=== PATIENT | female | born 1950 | race Caucasian/White ===

== ENCOUNTER 2016-12-10 16:48 | Emergency (ER) | payer OTHER ==
[~2016-12-10] VITALS: Ht 162.6 cm; Wt 72.6 kg
[~2016-12-10 16:48] MED LIST: ALT2.5 PO; ATOR10TA PO; LEVO0.083 PO; METF500T PO
[2016-12-10 17:23] VITALS: BP 129/80
[2016-12-10] MEDS ORDERED: GLIP10TA3 PO (17:34)
[2016-12-10] MEDS ORDERED: ERGO400T2 PO (17:34)
[2016-12-10] MEDS ORDERED: EMPA25TA PO (17:34)
[2016-12-10] MEDS ORDERED: GABA100C PO (17:34)
--- NOTE | 2016-12-10 18:41 | NUR ---
PATIENT PRESENTS TO ED WITH 65/F BIB FAMILY C/O COUGH & BODYACHE X 2 MONTHS. DENIES N/V/D; SKIN IS PINK/WARM/DRY; AAOX4 WITH EVEN AND STEADY GAIT; LUNGS CLEAR BL; HR EVEN AND REGULAR; PT DENIES ANY FEVER, CP, SOB AT THIS TIME; PATIENT STATES PAIN OF 8/10 AT THIS TIME; VSS; PATIENT POSITIONED FOR COMFORT; HOB ELEVATED; BEDRAILS UP X2; BED DOWN. ER MD MADE AWARE OF PT STATUS.
[2016-12-10 19:22] VITALS: BP 128/79
--- NOTE | 2016-12-10 19:22 | NUR ---
Patient discharged with v/s stable. Written and verbal after care instructions given and explained. Patient alert, oriented and verbalized understanding of instructions. Ambulatory with steady gait. All questions addressed prior to discharge. ID band removed. Patient advised to follow up with PMD. Rx of prednison given. Patient educated on indication of medication including possible reaction and side effects. Opportunity to ask questions provided and answered.
== END 2016-12-10 19:22 | disposition home or self-care (01) ==
LOC: MED 16:48
DX: R05 Cough (principal); R07.89 Other chest pain; M54.9 Dorsalgia, unspecified
CPT/HCPCS: 71020; 93005; 99284

== ENCOUNTER 2016-12-31 06:40 | Emergency (ER) | payer OTHER ==
[~2016-12-31] VITALS: Ht 162.6 cm; Wt 70.3 kg
[~2016-12-31 06:40] MED LIST changes: -ALT2.5 PO; +EMPA25TA PO; +ERGO400T2 PO; +GABA100C PO; +GLIP10TA3 PO
[2016-12-31 06:45] VITALS: BP 125/62
--- NOTE | 2016-12-31 06:57 | NUR ---
PT TAKEN TO BED 5
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
--- NOTE | 2016-12-31 07:38 | NUR ---
Dr. Duran evaluating patient at bedside.
[2016-12-31] MEDS ORDERED: ACETAMINOPHEN EXTRA STRENGTH 500 MG TAB PO ONE (07:45)
--- NOTE | 2016-12-31 08:00 | NUR ---
X-Ray at bedside.
--- NOTE | 2016-12-31 08:10 | NUR ---
Pt provided with meal tray. Tolerating well.
--- NOTE | 2016-12-31 08:33 | NUR ---
Patient appears to be resting comfortably in bed. Vital Signs within normal limits. Respirations even and unlabored.
[2016-12-31 09:34] VITALS: BP 136/71
--- NOTE | 2016-12-31 09:34 | NUR ---
Patient discharged with v/s stable. Written and verbal after care instructions given and explained. Patient alert, oriented and verbalized understanding of instructions. Ambulatory with steady gait. All questions addressed prior to discharge. ID band removed. Patient advised to follow up with PMD. Rx of EXTRA STRENGTH TYLENOL given. Patient educated on indication of medication including possible reaction and side effects. Opportunity to ask questions provided and answered.
[2016-12-31] MEDS ORDERED: BACITRACIN OINT 500 UNITS/GM PKT TP ONE (09:43)
== END 2016-12-31 09:34 | disposition home or self-care (01) ==
LOC: MED 06:40
DX: S80.211A Abrasion, right knee, initial encounter (principal); S60.511A Abrasion of right hand, initial encounter; R03.0 Elevated blood-pressure reading, without diagnosis of hypertension; E11.9 Type 2 diabetes mellitus without complications; Y04.8XXA Assault by other bodily force, initial encounter; Y93.89 Activity, other specified; Y92.89 Other specified places as the place of occurrence of the external cause; Y99.8 Other external cause status
CPT/HCPCS: 73130; 73562; 90471; 90715; 99284; Q0092

== ENCOUNTER 2017-06-30 09:23 | Outpatient (CLI) | payer OTHER | END 2017-06-30 20:56 | disposition home or self-care (01) | LOC: MUS 09:23 | PROVIDERS: ATTEND Obstetrics & Gynecology | DX: N95.0 Postmenopausal bleeding (principal); Z90.710 Acquired absence of both cervix and uterus | CPT/HCPCS: 76856 ==

== ENCOUNTER 2018-07-07 13:42 | Outpatient (CLI) | payer OTHER ==
[~2018-07-07 13:42] MED LIST changes: -ATOR10TA PO; -GABA100C PO; -GLIP10TA3 PO
== END 2018-07-07 20:13 | disposition home or self-care (01) ==
LOC: MCA 13:42
DX: E04.1 Nontoxic single thyroid nodule (principal); I70.0 Atherosclerosis of aorta; M47.892 Other spondylosis, cervical region; M47.894 Other spondylosis, thoracic region; J41.0 Simple chronic bronchitis; J67.9 Hypersensitivity pneumonitis due to unspecified organic dust; E11.9 Type 2 diabetes mellitus without complications; E78.00 Pure hypercholesterolemia, unspecified
CPT/HCPCS: 70490; 71250

== ENCOUNTER 2018-09-21 12:01 | Outpatient (CLI) | payer OTHER ==
[2018-09-21 12:28] LABS: BASOPHILS % (AUTO) 0.2 % (0.0-2.0); EOSINOPHILS # (AUTO) 0.8 K/uL (0-0.4); EOSINOPHILS % (AUTO) 14.2 % (0.0-4.0); HEMATOCRIT 43.2 % (36-48); HEMOGLOBIN 14.2 g/dL (12.0-16.0); LYMPHOCYTES # (AUTO) 1.4 K/uL (2.5-16.5); LYMPHOCYTES % (AUTO) 23.6 % (20.5-51.1); MEAN CORPUSCULAR HEMOGLOBIN 30 pg (27-31); MEAN CORPUSCULAR HGB CONC 33 g/dL (33-37); MEAN CORPUSCULAR VOLUME 89.8 fL (80-94); MONOCYTES # (AUTO) 0.4 K/uL (0.8-1.0); MONOCYTES % (AUTO) 7.2 % (1.7-9.3); NEUTROPHILS # (AUTO) 3.2 K/uL (1.8-7.7); NEUTROPHILS % (AUTO) 54.8 % (42.2-75.2); PLATELET COUNT (AUTO) 209 K/uL (140-450); RED CELL DISTRIBUTION WIDTH 13.8 % (11.6-13.7); WHITE BLOOD COUNT (AUTO) 5.9 K/uL (4.8-10.8)
[2018-09-21 12:58] LABS: ALBUMIN 4.1 g/dL (3.4-5.0); ANION GAP 11.7 (8-16); CARBON DIOXIDE 29.2 mmol/L (21-32); CHOL/HDL RATIO 2.5 (1-4.5); CREATININE 0.7 mg/dL (0.6-1.3); POTASSIUM 3.9 mmol/L (3.5-5.1); THYROID STIMULATING HORMONE 4.05 uIU/mL (0.34-3.74); TOTAL BILIRUBIN 0.6 mg/dL (0.0-1.0)
== END 2018-09-21 19:39 | disposition home or self-care (01) ==
LOC: MLB 12:01
PROVIDERS: ATTEND Internal Medicine Geriatric Medicine
DX: E78.5 Hyperlipidemia, unspecified (principal); E11.9 Type 2 diabetes mellitus without complications; E03.9 Hypothyroidism, unspecified; E55.9 Vitamin D deficiency, unspecified
CPT/HCPCS: 36415; 80053; 82306; 83036; 84443; 85025

== ENCOUNTER 2018-10-03 12:26 | Outpatient (CLI) | payer OTHER | END 2018-10-03 17:56 | disposition home or self-care (01) | LOC: MLB 12:26 | PROVIDERS: ATTEND Internal Medicine | DX: R05 Cough (principal); E03.9 Hypothyroidism, unspecified; E11.9 Type 2 diabetes mellitus without complications | CPT/HCPCS: 87070; 87205 ==

== ENCOUNTER 2018-12-21 09:24 | Outpatient (CLI) | payer OTHER | END 2018-12-21 20:00 | disposition home or self-care (01) | LOC: MUS 09:24 | PROVIDERS: ATTEND Internal Medicine Geriatric Medicine | DX: E04.2 Nontoxic multinodular goiter (principal) | CPT/HCPCS: 76536; Q0092 ==

== ENCOUNTER 2024-05-14 14:10 | Emergency (ER) | payer OTHER, MEDICAID ==
[~2024-05-14] VITALS: Ht 162.6 cm; Wt 72.6 kg
[~2024-05-14 14:10] MED LIST changes: +METF-346 PO; -METF500T PO
[2024-05-14 14:15] VITALS: BP 141/55; PULSE 74; RESP 18; TEMP 98.6; O2SAT 98
--- NOTE | 2024-05-14 14:20 | NUR ---
PT AMB TO BED 8
--- NOTE | 2024-05-14 14:43 | NUR ---
Patient being evaluated by physician at bedside.
--- NOTE | 2024-05-14 14:51 | NUR ---
Patient ambulated to restroom with steady gait.
--- NOTE | 2024-05-14 15:10 | NUR ---
73 y/o female bib self with c/o edema to bilateral lower extremities. Patient is noted with +2 pitting edema to lower extremities. Patient has positive bilateral pedal pulses. Patient is ambulatory. Denies any SOB or fevers. Patient reports recent UTI infection. Patient has no redness or heat to legs. Medical History: DM, Thyroid NKDA
[2024-05-14 15:22] LABS: APPEARANCE,URINE CLEAR (CLEAR); BILIRUBIN,URINE NEGATIVE (NEGATIVE); BLOOD, URINE NEGATIVE (NEGATIVE); COLOR,URINE YELLOW (YELLOW); LEUKOCYTE ESTERASE ,URINE NEGATIVE (NEGATIVE); NITRITE, URINE NEGATIVE (NEGATIVE); PROTEIN,URINE NEGATIVE (NEGATIVE); UGLUCOSE 3+ (NEGATIVE); UROBILINOGEN,URINE 0.2 EU/dL (0.2 - 1)
[2024-05-14 15:25] LABS: BASOPHILS % (AUTO) 0.4 % (0.0-2.0); EOSINOPHILS # (AUTO) 2.3 K/uL (0-0.4); EOSINOPHILS % (AUTO) 32.4 % (0.0-4.0); HEMATOCRIT 39.4 % (36-48); LYMPHOCYTES # (AUTO) 1.9 K/uL (2.5-16.5); LYMPHOCYTES % (AUTO) 26.7 % (20.5-51.1); MEAN CORPUSCULAR HEMOGLOBIN 30 pg (27-31); MEAN CORPUSCULAR HGB CONC 33 g/dL (33-37); MEAN CORPUSCULAR VOLUME 91.6 fL (80-94); MONOCYTES # (AUTO) 0.5 K/uL (0.8-1.0); MONOCYTES % (AUTO) 6.6 % (1.7-9.3); NEUTROPHILS # (AUTO) 2.4 K/uL (1.8-7.7); NEUTROPHILS % (AUTO) 33.9 % (42.2-75.2); PLATELET COUNT (AUTO) 180 K/uL (140-450); RED CELL DISTRIBUTION WIDTH 14.9 % (11.6-13.7)
--- NOTE | 2024-05-14 15:25 | NUR ---
X-Ray at bedside.
[2024-05-14 15:38] LABS: ANION GAP 12.9 (8-16); CARBON DIOXIDE 29.6 mmol/L (21-32); CHLORIDE 103 mmol/L (98-107); CREATININE 0.8 mg/dL (0.6-1.3); GLUCOSE 212 mg/dL (74-106); POTASSIUM 3.5 mmol/L (3.5-5.1); SODIUM SERUM 142 mmol/L (136-145); UREA NITROGEN, BLOOD 16 mg/dL (7-18)
--- NOTE | 2024-05-14 15:51 | NUR ---
Per basilia Sullivan to give milk and crackers. Patient was given milk and crackers.
[2024-05-14 16:55] VITALS: BP 137/60; PULSE 71; RESP 18; TEMP 97.4; O2SAT 97
--- NOTE | 2024-05-14 16:55 | NUR ---
Patient discharged with v/s stable. Written and verbal after care instructions given. Patient verbalized understanding. Ambulatory with steady gait. All questions addressed prior to discharge. Advised to follow up with PMD.
--- NOTE | 2024-05-14 17:15 | NUR ---
Chart checked and completed. The patient's care was reviewed and supervised by MISAEL CARNEY RN.
== END 2024-05-14 16:55 | disposition home or self-care (01) ==
LOC: MED 14:10
DX: R60.0 Localized edema (principal); E11.9 Type 2 diabetes mellitus without complications; E03.9 Hypothyroidism, unspecified; Z79.899 Other long term (current) drug therapy
CPT/HCPCS: 36415; 71045; 80048; 81003; 83880; 85025; 99284